=== PATIENT | female | born 1950 | race Caucasian/White ===

== ENCOUNTER 2024-01-17 19:58 | Inpatient (IN) | payer OTHER ==
[2024-01-17 20:19] VITALS: BMI 19.2
[2024-01-17] MEDS ORDERED: morphine SULFATE 4 MG/ML VIAL ONE (20:34)
[2024-01-17] MEDS: morphine CARPU-JECT 4 MG/1 ML DISP.SYRIN IVPUSH ONE (20:46)
[2024-01-17 20:58] LABS: BASO % 0.4 % (0-2.0); EOS % 2.6 % (0-4.5); HEMATOCRIT 40.8 % (32.4-45.2); HEMOGLOBIN 13.9 GM/dL (10.7-15.3); LYMPH % 24.8 % (8-40); MCH 31.4 pg (25.7-33.7); MEAN CELL VOLUME 92.6 fl (80-96); MEAN PLT VOLUME 8.5 fl (7.5-11.1); MONO % 9.6 % (3.8-10.2); NEUT % 62.6 % (42.8-82.8); PLATELET COUNT 231 10^3/uL (134-434); RBC 4.41 M/mm3 (3.60-5.2); WHITE BLOOD COUNT 5.7 K/mm3 (4.0-10.0)
[2024-01-17 21:10] LABS: INR 0.95 (0.83-1.09); PROTHROMBIN TIME (PATIENT) 10.7 SEC (9.7-13.0)
[2024-01-17 21:13] LABS: ACTIVATED PTT 30.7 SECONDS (25.2-36.5)
[2024-01-17 21:39] LABS: POTASSIUM 3.8 mmol/L (3.5-5.1)
[2024-01-17 21:40] LABS: CALCIUM 9.5 mg/dL (8.5-10.1)
[2024-01-17 21:41] LABS: ALBUMIN 3.7 g/dl (3.4-5.0); BLOOD UREA NITROGEN 18.8 mg/dL (7-18)
[2024-01-17 21:45] LABS: BILIRUBIN,TOTAL 0.4 mg/dL (0.2-1)
[2024-01-17 21:46] LABS: TOT PROT 6.4 g/dl (6.4-8.2)
[2024-01-17] MEDS ORDERED: BUPIVACAINE HCL/PF 0.5% (5MG/ML) 10 ML VIAL ONE ×2 (21:57→21:58)
[2024-01-17] MEDS ORDERED: LIDOCAINE HCL/PF 1% SDV 5ML VIAL ONE (21:57)
[2024-01-17] MEDS: BUPIVACAINE HCL/PF 0.5% (5 MG/ML) 30 ML VIAL IJ ONE (22:00)
[2024-01-17] MEDS: LIDOCAINE HCL 1%, 10 MG/ML (50 mL VIAL) SQ ONE (22:01)
[2024-01-18] MEDS: morphine SULFATE 4 MG/ML VIAL IVPUSH ONE (01:26)
[2024-01-18] MEDS ORDERED: MORPHINE SULFATE 2 MG/ML SYRINGE ONE (03:45)
[2024-01-18] MEDS: MORPHINE SULFATE 2 MG/ML SYRINGE IVPUSH PRN (03:53)
[2024-01-18] MEDS: DEXTROSE 5%-0.45% SALINE 1,000 ML IV SCH (05:40)
[2024-01-18] MEDS: ACETAMINOPHEN 1000 MG/100 ML BAG IVPB PRN (08:33)
[2024-01-18] MEDS ORDERED: DEXTROSE 5%-0.45% SALINE 1,000 ML IV SCH (09:51)
[2024-01-18 10:16] LABS: BASO % 0.2 % (0-2.0); EOS % 0.3 % (0-4.5); HEMATOCRIT 38.8 % (32.4-45.2); HEMOGLOBIN 12.7 GM/dL (10.7-15.3); LYMPH % 7.2 % (8-40); MCH 31.1 pg (25.7-33.7); MCHC 32.9 g/dl (32.0-36.0); MEAN CELL VOLUME 94.7 fl (80-96); MONO % 9.7 % (3.8-10.2); NEUT % 82.6 % (42.8-82.8); PLATELET COUNT 207 10^3/uL (134-434); RBC 4.09 M/mm3 (3.60-5.2); RDW 14.4 % (11.6-15.6); WHITE BLOOD COUNT 8.6 K/mm3 (4.0-10.0)
[2024-01-18 10:31] LABS: POTASSIUM 4.9 mmol/L (3.5-5.1)
[2024-01-18 10:36] LABS: CALCIUM 9.4 mg/dL (8.5-10.1)
[2024-01-18 10:37] LABS: BLOOD UREA NITROGEN 16.8 mg/dL (7-18)
[2024-01-18 10:40] LABS: CREATININE 0.7 mg/dL (0.55-1.3)
[2024-01-18] MEDS ORDERED: MIDAZOLAM HCL 2 MG/2 ML SINGLE DOSE VIAL ONE (11:13)
[2024-01-18] MEDS ORDERED: PROPOFOL 20 ML ONE (11:13)
[2024-01-18] MEDS ORDERED: ceFAZolin SODIUM 1 GM VIAL ONE (11:13)
[2024-01-18] MEDS ORDERED: ONDANSETRON 4 MG/2 ML VIAL ONE (11:13)
[2024-01-18] MEDS ORDERED: BUPIVACAINE HCL/PF 0.5% (5MG/ML) 10 ML VIAL ONE (11:26)
[2024-01-18] MEDS: ceFAZolin SODIUM 1 GM VIAL IVPB ONE (11:48)
[2024-01-18] MEDS ORDERED: TRANEXAMIC ACID 1000 MG/10 ML VIAL ONE (12:42)
[2024-01-18] MEDS ORDERED: oxyCODONE HCL 5 MG TABLET PO PRN (12:54)
[2024-01-18] MEDS ORDERED: ONDANSETRON 4 MG/2 ML VIAL IVPUSH PRN (12:54)
[2024-01-18] MEDS ORDERED: LACTATED RINGERS SOLUTION 1,000 ML IV SCH (13:00)
[2024-01-18] MEDS: oxyCODONE HCL 5 MG TABLET PO PRN (18:24)
[2024-01-18] MEDS: CEFAZOLIN 1 GM in DEXTROSE 5%-WATER 100 ML IVPB SCH (18:25)
[2024-01-19] MEDS: CHOLECALCIFEROL (VIT D3) 1,000 UNIT (25 MCG) TABLET PO SCH (09:56)
[2024-01-19] MEDS: ENOXAPARIN NA (PORCINE) 40 MG/0.4 ML DISP.SYRIN SQ SCH (09:56)
[2024-01-19] MEDS: PSYLLIUM 5.85 GM PACKET PO SCH (09:57)
[2024-01-19 10:46] LABS: BASO % 0.1 % (0-2.0); EOS % 1.6 % (0-4.5); HEMATOCRIT 35.2 % (32.4-45.2); HEMOGLOBIN 11.8 GM/dL (10.7-15.3); LYMPH % 9.8 % (8-40); MCH 31.5 pg (25.7-33.7); MCHC 33.6 g/dl (32.0-36.0); MEAN CELL VOLUME 93.7 fl (80-96); MEAN PLT VOLUME 8.8 fl (7.5-11.1); MONO % 14.3 % (3.8-10.2); NEUT % 74.2 % (42.8-82.8); PLATELET COUNT 163 10^3/uL (134-434); RBC 3.75 M/mm3 (3.60-5.2); RDW 14.3 % (11.6-15.6); WHITE BLOOD COUNT 6.9 K/mm3 (4.0-10.0)
[2024-01-19 11:15] LABS: BLOOD UREA NITROGEN 10.8 mg/dL (7-18); CALCIUM 8.4 mg/dL (8.5-10.1)
[2024-01-19 11:18] LABS: CREATININE 0.7 mg/dL (0.55-1.3)
[2024-01-19 11:19] LABS: ALBUMIN 2.8 g/dl (3.4-5.0)
[2024-01-19 11:20] LABS: BILIRUBIN,TOTAL 0.9 mg/dL (0.2-1); TOT PROT 5.3 g/dl (6.4-8.2)
[2024-01-20] MEDS: MAGNESIUM HYDROX 2400MG/30ML ORAL SUSPENSION 30 ML CUP PO PRN (11:06)
[2024-01-20 11:21] LABS: BASO % 0.3 % (0-2.0); EOS % 2.2 % (0-4.5); HEMATOCRIT 32.5 % (32.4-45.2); HEMOGLOBIN 10.9 GM/dL (10.7-15.3); LYMPH % 10.7 % (8-40); MCH 31.5 pg (25.7-33.7); MCHC 33.4 g/dl (32.0-36.0); MEAN CELL VOLUME 94.1 fl (80-96); MONO % 13.8 % (3.8-10.2); PLATELET COUNT 168 10^3/uL (134-434); RBC 3.45 M/mm3 (3.60-5.2); RDW 13.8 % (11.6-15.6); WHITE BLOOD COUNT 6.8 K/mm3 (4.0-10.0)
[2024-01-20 11:31] LABS: POTASSIUM 4.1 mmol/L (3.5-5.1)
[2024-01-20 11:35] LABS: BLOOD UREA NITROGEN 13.3 mg/dL (7-18); CALCIUM 8.5 mg/dL (8.5-10.1)
[2024-01-20 11:39] LABS: CREATININE 0.6 mg/dL (0.55-1.3)
[2024-01-21] MEDS: DOCUSATE SODIUM 100 MG CAPSULE (FP) PO PRN (08:53)
[2024-01-21 10:47] LABS: BASO % 0.2 % (0-2.0); EOS % 1.7 % (0-4.5); HEMATOCRIT 35.9 % (32.4-45.2); HEMOGLOBIN 12.2 GM/dL (10.7-15.3); MCH 31.9 pg (25.7-33.7); MCHC 33.9 g/dl (32.0-36.0); MEAN PLT VOLUME 9.1 fl (7.5-11.1); MONO % 10.4 % (3.8-10.2); NEUT % 75.7 % (42.8-82.8); PLATELET COUNT 204 10^3/uL (134-434); RBC 3.82 M/mm3 (3.60-5.2); RDW 14.3 % (11.6-15.6); WHITE BLOOD COUNT 6.4 K/mm3 (4.0-10.0)
[2024-01-21 11:15] LABS: POTASSIUM 4.4 mmol/L (3.5-5.1)
[2024-01-21 11:18] LABS: BLOOD UREA NITROGEN 12.2 mg/dL (7-18)
[2024-01-21 11:21] LABS: CREATININE 0.6 mg/dL (0.55-1.3)
[2024-01-21] MEDS: POLYETHYLENE GLYCOL (HEALTHYLAX) 3350 17 GM PACKET PO SCH (11:51)
[2024-01-21 11:57] LABS: CALCIUM 9.9 mg/dL (8.5-10.1)
[2024-01-21 21:32] VITALS: RESP 18
[2024-01-22 14:57] LABS: EPI CELLS 4 /uL (0-25.1); HYALINE CASTS 0 /uL (0-3.1); PH,URINE 6.5 (5.0-8.0); URINE APPEARANCE CLEAR; URINE BACTERIA 3428 /uL (0-1359); URINE BILIRUBIN NEGATIVE (NEGATIVE); URINE COLOR YELLOW; URINE GLUCOSE (UA) NEGATIVE (NEGATIVE); URINE KETONE NEGATIVE (NEGATIVE); URINE LEUK ESTERASE TRACE (NEGATIVE); URINE NITRITE NEGATIVE (NEGATIVE); URINE PROTEIN NEGATIVE (NEGATIVE); URINE RBC 88 /uL (0-23.9); URINE WBC 27 /uL (0-25.8)
[2024-01-23] MEDS: TAMSULOSIN HCL 0.4 MG CAP PO SCH (08:40)
[2024-01-23 11:23] VITALS: TEMP 97.9
[2024-01-23] MEDS: ACETAMINOPHEN 1000 MG/100 ML BAG IVPB PRN (13:15)
[2024-01-23 14:35] VITALS: BP 105/59; PULSE 66
== END 2024-01-23 19:40 | DRG 480 ==
LOC: JER 19:58 → UNDOADMIN 23:40 → J6S 23:40 → JERBED 23:40
PROVIDERS: ADMIT Internal Medicine; ATTEND Internal Medicine
PROC: 0QS706Z Reposition Left Upper Femur with Intramedullary Internal Fixation Device, Open Approach (ICD-10-PCS; principal; 2024-01-18 10:30)
DX: S72.142A Displaced intertrochanteric fracture of left femur, initial encounter for closed fracture (principal); E43 Unspecified severe protein-calorie malnutrition; Z68.1 Body mass index [BMI] 19.9 or less, adult; I10 Essential (primary) hypertension; E86.0 Dehydration; R33.9 Retention of urine, unspecified; R00.1 Bradycardia, unspecified; W01.0XXA Fall on same level from slipping, tripping and stumbling without subsequent striking against object, initial encounter; Y93.89 Activity, other specified; Y92.89 Other specified places as the place of occurrence of the external cause; Y99.8 Other external cause status
CPT/HCPCS: 36415; 71045-TC-FY; 72170-TC-FY; 73502-TC-LT-FY; 76000-TC-FY; 76775-TC; 76942; 80048; 80053; 81003; 84439; 84443; 85025; 85610; 85730; 86850; 86900; 86901; 93005; 93010; 94760; 97116-GP; 97162-GP; 99285-25; C1713; J0131

== ENCOUNTER 2024-05-08 18:52 | Emergency (ER) | payer OTHER ==
[2024-05-08 19:06] VITALS: BMI 18.7
[2024-05-08 20:22] LABS: HEMATOCRIT 44.8 % (32.4-45.2); HEMOGLOBIN 14.8 GM/dL (10.7-15.3); MCH 29.9 pg (25.7-33.7); MCHC 33.1 g/dl (32.0-36.0); MEAN CELL VOLUME 90.4 fl (80-96); MEAN PLT VOLUME 9.2 fl (7.5-11.1); PLATELET COUNT 158 10^3/uL (134-434); RBC 4.95 M/mm3 (3.60-5.2); RDW 15.2 % (11.6-15.6); WHITE BLOOD COUNT 2.5 K/mm3 (4.0-10.0)
[2024-05-08 20:24] LABS: INR 0.99 (0.83-1.09); PROTHROMBIN TIME (PATIENT) 11.4 SEC (9.7-13.0)
[2024-05-08 20:27] LABS: ACTIVATED PTT 31.8 SECONDS (25.2-36.5)
[2024-05-08] MEDS ORDERED: ACETAMINOPHEN INJECTION 100 ML ONE (20:49)
[2024-05-08] MEDS ORDERED: METOCLOPRAMIDE HCL INJECTION 10 MG/2 ML VIAL ONE (20:49)
[2024-05-08 20:55] LABS: POTASSIUM 4.5 mmol/L (3.5-5.1)
[2024-05-08 21:05] LABS: ALBUMIN 3.7 g/dl (3.4-5.0); BILIRUBIN,TOTAL 0.5 mg/dL (0.2-1); BLOOD UREA NITROGEN 13.9 mg/dL (7-18); CALCIUM 9.2 mg/dL (8.5-10.1); CREATININE 0.8 mg/dL (0.55-1.3); TOT PROT 6.8 g/dl (6.4-8.2)
[2024-05-08] MEDS: SODIUM CHLORIDE 1,000 ML IV STA (21:22)
[2024-05-08] MEDS: ACETAMINOPHEN 1000 MG/100 ML BAG IVPB ONE (21:22)
[2024-05-08] MEDS: METOCLOPRAMIDE HCL INJECTION 10 MG/2 ML VIAL IVPB ONE (21:23)
[2024-05-08 21:27] LABS: ANISOCYTOSIS 0; MACROCYTOSIS 0
[2024-05-08] MEDS ORDERED: OSELTAMIVIR PHOSPHATE 75 MG CAPSULE ONE (21:54)
[2024-05-08] MEDS: OSELTAMIVIR PHOSPHATE 75 MG CAPSULE PO ONE (22:15)
[2024-05-08 23:40] VITALS: BP 133/70; PULSE 67; RESP 18; TEMP 99
== END 2024-05-08 23:45 | disposition home or self-care (01) ==
LOC: JER 18:52
PROC: 3E033NZ Introduction of Analgesics, Hypnotics, Sedatives into Peripheral Vein, Percutaneous Approach (ICD-10-PCS; principal; 2024-05-08)
PROC: 3E033GC Introduction of Other Therapeutic Substance into Peripheral Vein, Percutaneous Approach (ICD-10-PCS; 2024-05-08)
PROC: 3E0337Z Introduction of Electrolytic and Water Balance Substance into Peripheral Vein, Percutaneous Approach (ICD-10-PCS; 2024-05-08)
DX: R51.9 Headache, unspecified (principal); R11.0 Nausea; R63.0 Anorexia; J10.1 Influenza due to other identified influenza virus with other respiratory manifestations; Z20.822 Contact with and (suspected) exposure to COVID-19
CPT/HCPCS: 0241U-QW; 36415; 71046-TC-FY; 80053; 84484; 85025; 85610; 85730; 86850; 86900; 86901; 93005; 93010; 99285-25; J0131

== ENCOUNTER 2024-07-02 07:34 | Emergency (ER) | payer OTHER ==
[2024-07-02 08:15] VITALS: RESP 18; TEMP 98.6; BMI 18.8
[2024-07-02] MEDS ORDERED: MAG HYDROX/AL HYDROX/SIMETH 30 ML UNIT-DOSE CUP ONE (08:21)
[2024-07-02] MEDS ORDERED: ONDANSETRON 4 MG/2 ML VIAL ONE ×2 (08:21→14:53)
[2024-07-02] MEDS ORDERED: FAMOTIDINE 20 MG/50 ML IVPB 20 MG/50 ML MG IVPB ONE (08:21)
[2024-07-02] MEDS: ONDANSETRON 4 MG/2 ML VIAL IVPUSH ONE ×2 (08:40→14:27)
[2024-07-02] MEDS: SODIUM CHLORIDE 0.9% 500 ML INFUS.BAG IV ONE (08:40)
[2024-07-02] MEDS: MAG HYDROX/AL HYDROX/SIMETH 30 ML UNIT-DOSE CUP PO ONE (08:40)
[2024-07-02] MEDS: FAMOTIDINE 20 MG/50 ML IVPB 20 MG/50 ML MG IVPB ONE (08:40)
[2024-07-02 09:01] LABS: HEMATOCRIT 46.6 % (32.4-45.2); HEMOGLOBIN 15.6 GM/dL (10.7-15.3); MCH 30.6 pg (25.7-33.7); MCHC 33.5 g/dl (32.0-36.0); MEAN CELL VOLUME 91.4 fl (80-96); MEAN PLT VOLUME 9.3 fl (7.5-11.1); PLATELET COUNT 179 10^3/uL (134-434); RDW 15.6 % (11.6-15.6); WHITE BLOOD COUNT 5.8 K/mm3 (4.0-10.0)
[2024-07-02 09:19] LABS: POTASSIUM 3.7 mmol/L (3.5-5.1)
[2024-07-02 09:21] LABS: CALCIUM 8.9 mg/dL (8.5-10.1)
[2024-07-02 09:22] LABS: ALBUMIN 3.8 g/dl (3.4-5.0); BLOOD UREA NITROGEN 17.5 mg/dL (7-18); MAGNESIUM 2.1 mg/dL (1.8-2.4)
[2024-07-02 09:25] LABS: CREATININE 0.8 mg/dL (0.55-1.3)
[2024-07-02 09:26] LABS: BILIRUBIN,TOTAL 0.8 mg/dL (0.2-1)
[2024-07-02 09:27] LABS: TOT PROT 6.6 g/dl (6.4-8.2)
[2024-07-02 09:56] LABS: ANISOCYTOSIS 0; MACROCYTOSIS 0
[2024-07-02] MEDS: MINERAL OIL ENEMA 133 ML ENEMA RC ONE (11:57)
[2024-07-02 16:14] VITALS: BP 126/74; PULSE 75
== END 2024-07-02 17:45 ==
LOC: JER 07:34
PROC: 3E033GC Introduction of Other Therapeutic Substance into Peripheral Vein, Percutaneous Approach (ICD-10-PCS; principal; 2024-07-02)
PROC: 3E033GC Introduction of Other Therapeutic Substance into Peripheral Vein, Percutaneous Approach (ICD-10-PCS; 2024-07-02)
PROC: 3E033GC Introduction of Other Therapeutic Substance into Peripheral Vein, Percutaneous Approach (ICD-10-PCS; 2024-07-02)
DX: R11.2 Nausea with vomiting, unspecified (principal); R10.9 Unspecified abdominal pain
CPT/HCPCS: 36415; 71045-TC-FY; 74177-TC; 80053; 83605; 83690; 83735; 84484; 85025; 93005; 93010; 99285-25; Q9967

== ENCOUNTER 2024-07-22 00:29 | Emergency (ER) | payer OTHER ==
[2024-07-22 00:46] VITALS: BMI 22.6
[2024-07-22] MEDS ORDERED: ACETAMINOPHEN INJECTION 100 ML ONE (01:20)
[2024-07-22] MEDS: ACETAMINOPHEN 1000 MG/100 ML BAG IVPB ONE (01:34)
[2024-07-22 01:40] LABS: HEMATOCRIT 39.4 % (34.1-44.9); HEMOGLOBIN 12.7 g/dL (11.2-15.7); MCHC 32.2 g/dl (32.2-35.5); MEAN CELL VOLUME 92.7 fl (79.4-94.8); MEAN PLT VOLUME 10.9 fl (9.4-12.3); PLATELET COUNT 145 x10^3/uL (182-369); RDW 14.4 % (12.4-16.6)
[2024-07-22 02:12] LABS: POTASSIUM 3.5 mmol/L (3.5-5.1)
[2024-07-22 02:14] LABS: ALBUMIN 3.4 g/dl (3.4-5.0); BLOOD UREA NITROGEN 9.4 mg/dL (7-18); CALCIUM 8.7 mg/dL (8.5-10.1)
[2024-07-22 02:17] LABS: CREATININE 0.6 mg/dL (0.55-1.3)
[2024-07-22 02:19] LABS: BILIRUBIN,TOTAL 0.4 mg/dL (0.2-1); TOT PROT 5.9 g/dl (6.4-8.2)
[2024-07-22 04:58] VITALS: BP 95/48; PULSE 53; RESP 16; TEMP 98.5
== END 2024-07-22 09:32 | disposition admitted as inpatient to this hospital (09) ==
LOC: JER 00:29
PROC: 3E033NZ Introduction of Analgesics, Hypnotics, Sedatives into Peripheral Vein, Percutaneous Approach (ICD-10-PCS; principal; 2024-07-22)
DX: M25.511 Pain in right shoulder (principal); M79.605 Pain in left leg; M79.662 Pain in left lower leg
CPT/HCPCS: 36415; 71045-TC-FY; 72070-TC-FY; 80053; 82550; 85025; 99284-25; J0131

== ENCOUNTER 2024-09-17 17:47 | Emergency (ER) | payer OTHER ==
[2024-09-17 18:57] VITALS: TEMP 98; BMI 19.2
[2024-09-17] MEDS ORDERED: ACETAMINOPHEN 325 MG TABLET (FP) ONE (20:58)
[2024-09-17] MEDS: ACETAMINOPHEN 325 MG TABLET (FP) PO ONE (21:06)
[2024-09-18 02:45] VITALS: BP 135/65; PULSE 56; RESP 18
== END 2024-09-18 02:00 | disposition home or self-care (01) ==
LOC: JER 17:47
PROC: 0HQ0XZZ Repair Scalp Skin, External Approach (ICD-10-PCS; principal; 2024-09-17)
DX: S01.01XA Laceration without foreign body of scalp, initial encounter (principal); S01.112A Laceration without foreign body of left eyelid and periocular area, initial encounter; W22.8XXA Striking against or struck by other objects, initial encounter
CPT/HCPCS: 70450-TC; 72125-TC; 93005; 93010; 99284-25